=== PATIENT | female | born 1980 | race Caucasian/White ===

== ENCOUNTER 2017-02-23 16:06 | Emergency (ER) | payer MEDICAID ==
[~2017-02-23 16:06] MED LIST: ARTHROTEC 50 MG PO; BENTYL20 M1 PO; COMPAZINE10 MG PO; CYMBALTA30 M1 PO; DICLOFENAC POTA50 M1 PO; DICLOFENAC SODI50 M1 PO; DULOXETINE; FIORICET 50-301 EAC1 PO; HYDROXYZINE; IBUPROFEN800 M1 PO; LAMICTAL25 M2 PO; LAMOTRIGINE; LORTAB 5-325 M1 EAC1 PO; METOPROLOL SUCC25 M1 PO; NAPROXEN500 M1 PO; NO HOME MEDICATION XX; NORCO 5-325 TA1 EACH PO; NORCO 5/325 TAB1 TAB PO; NORCO 5/3251 TAB PO; OMEPRAZOLE40 M2 PO; PERCOCET 5-3251 EACH PO; PROTONIX40 M2 PO; ROBAXIN-750750 M1 PO; SOMA350 M1 PO; SOMA350 MG PO; TORADOL; TRAZODONE HCL50 M1 PO; TYLENOL325 M2 PO; VISTARIL25 M1 PO; WOMEN MULTIVITAMIN PO; ZOFRAN ODT4 MG PO; ZOFRAN4 M2 PO; ZYPREXA5 M1 PO
[2017-02-23 16:53] LABS: BASO % 0.3 % (0-2); EOS % 0.8 % (0-7); EOSINOPHIL ABSOLUTE COUNT 0.1 tho/cmm (0.0-0.7); HCT-HEMATOCRIT 38.1 % (34.0-49.0); HGB-HEMOGLOBIN 13.4 gm/dl (12.0-15.5); IMMATURE GRANULOCYTES ABSOLUTE 0.06 tho/cmm (0-0.03); IMMATURE GRANULOCYTES PERCENT 0.4 % (0-0.3); LYMPH % 24.5 % (20-45); LYMPH ABSOLUTE COUNT 3.6 tho/cmm (0.8-4.5); MCH (MEAN CORPUSCULAR HGB) 31.2 pg (28.0-32.0); MCHC MEAN CORPUSCULAR HGB CONC 35.2 % (32.0-36.0); MCV (MEAN CELL VOLUME) 88.8 fl (82.0-96.0); MEAN PLATELET VOLUME 9.4 cmc (9.4-12.4); MONO % 5.7 % (0-12); MONOCYTE ABSOLUTE COUNT 0.8 tho/cmm (0.0-1.2); NEUTROPHIL ABSOLUTE COUNT 9.9 tho/cmm (1.6-8.0); NEUTROPHIL-AUTOMATED 9.9 tho/cmm (1.6-8.0); NEUTROPHILS % 68.3 % (40-80); PLATELET COUNT 525 tho/cmm (150-450); RED BLOOD COUNT 4.29 mil/cmm (4.00-5.20); RED CELL DISTRIBUTION WIDTH 14.2 % (12.4-16.4); WHITE BLOOD COUNT 14.5 tho/cmm (4.0-10.0)
[2017-02-23 17:09] LABS: ALB/GLOB RATIO 1.2 (0.8-2.0); ALKALINE PHOSPHATASE 69 U/L (33-138); ALT/SGPT 35 U/L (12-78); ANION GAP 12 mmol/L (0-20); AST/SGOT 15 U/L (10-40); BILIRUBIN,TOTAL 0.5 mg/dl (0-1.5); BLOOD UREA NITROGEN 35 mg/dl (6-24); CARBON DIOXIDE-VENOUS 20 mmol/L (22-32); CHLORIDE 111 mmol/l (96-110); CREATININE 0.74 mg/dl (0.50-1.10); GLUCOSE 130 mg/dL (70-110); POTASSIUM 3.4 mmol/L (3.7-5.1); SODIUM 140 mmol/L (135-145); eGFR VALUE FOR BLACK >90 mL/Min
[2017-02-23] MEDS ORDERED: NEXIUM40 M1 PO (17:16)
[2017-02-23] MEDS ORDERED: LOMOTIL 2.5-0.1 EACH PO (17:44)
[2017-07-11] MEDS ORDERED: DICLOFENAC SODI50 M1 PO (18:49)
[2017-07-11] MEDS ORDERED: CYCLOBENZAPRINE10 M1 PO (18:50)
== END 2017-02-23 18:08 ==
LOC: EDMED 16:06
PROVIDERS: Emergency Medicine
DX: E86.0 Dehydration (principal); K29.70 Gastritis, unspecified, without bleeding; R19.7 Diarrhea, unspecified; F31.9 Bipolar disorder, unspecified; Z98.890 Other specified postprocedural states; Z88.0 Allergy status to penicillin; Z88.5 Allergy status to narcotic agent; Z88.8 Allergy status to other drugs, medicaments and biological substances
CPT/HCPCS: J7030